=== PATIENT | female | born 1990 | race Caucasian/White ===

== ENCOUNTER 2016-10-30 18:48 | Emergency (ER) | payer OTHER ==
--- NOTE | 2016-10-30 20:26 | DIAGNOSTIC IMAGING REPORT ---
PROCEDURE: XR CHEST 2 VIEW INDICATION: CHEST PAIN TECHNIQUE: PA and lateral views. COMPARISON: None. FINDINGS: Allowing for suboptimal inspiration on the frontal view, lungs are clear. Heart and mediastinum are normal. Thorax is normal. IMPRESSION: 1. Negative chest.
--- NOTE | 2016-10-30 20:29 | ED CLINICAL REPORT ---
Clinical Report - Physicians/Mid Levels [facility] [address] [place] [address] 10/30/2016 18:51 Patient: BRIAN GEORGES Time Seen: 1900; upon arrival, initial patient contact, initial documentation, patient care assumed. Arrived- By private vehicle. Historian- patient. HISTORY OF PRESENT ILLNESS Chief Complaint: CHEST PAIN and DISCOMFORT. This started 3 days ago and is still present. It was abrupt in onset and has been constant. At its maximum, severity described as moderate. When seen in the E.D., severity described as moderate. Modifying factors. Not worsened by anything. Not relieved by anything. It is described as pressure, burning, "pain" and well localized and it is described as located in the central chest area. No radiation. No nausea, vomiting, difficulty breathing or diaphoresis. No additional chest pain. (heart feels like it is beating faster than normal). Similar symptoms previously: None. Recent medical care: The patient was seen recently in a clinic. ( went to [facility], sent here for further eval). REVIEW OF SYSTEMS No fever or cough. All systems otherwise negative, except as recorded above. PAST HISTORY Negative. SOCIAL HISTORY Never smoker. No alcohol use or drug use. No recent travel. Is a local resident. FAMILY HISTORY Negative. ADDITIONAL NOTES The nursing notes have been reviewed with agreement regarding the chief complaint, HPI, ROS, PMH and patient medications and allergies. PHYSICAL EXAM Vital Signs: 10/30/2016 18:56 BP: 142/92. HR: 110. RR: 14. O2 saturation: 100%. Pain level now: 7/10. Have been reviewed as abnormal and appear to be correct. Hypertensive. Tachycardic. Respiratory rate normal. Temperature normal. Oxygen saturation normal. Appearance: Alert. Oriented X3. No acute distress. Eyes: Pupils equal, round and reactive to light. Eyes normal inspection. Neck: Normal inspection. Neck supple. CVS: Heart rate / rhythm abnormal. Tachycardia (ventricular rate = 110). Heart sounds normal. Pulses normal. Respiratory: No respiratory distress. Breath sounds normal. Chest nontender. Back: Normal external inspection. Skin: Skin warm and dry. Normal skin color. No rash. Normal skin turgor. Extremities: Extremities exhibit normal ROM. No lower extremity edema. Neuro: Oriented X 3. No motor deficit. No sensory deficit. LABS, X-RAYS, AND EKG EKG: EKG time: (1904). No acute process. No acute ischemia. Normal EKG. Regular narrow-complex tachycardia (ventricular rate 108). Sinus tachycardia. Normal EKG. The study has been interpreted contemporaneously by me (and dr person). The EKG appears to be a good tracing. Interpretation time: 1904. Chest X-ray: Normal Chest X-Ray. (IMPRESSION: 1. Negative chest. Electronically Final signed by:Moises Frazier MD 10/30/2016 8:23:46 PM). The X-rays were interpreted by the radiologist and contemporaneously by me. PROGRESS AND PROCEDURES Course of Care: 10/30/2016 20:13 BP: 114/91. HR: 98. RR: 14. O2 saturation: 99%. Pain level now: 7/10. Vital Signs: have been reviewed as normal and appear to be correct. Patient counseled in person regarding the patient's stable condition, test results and diagnosis. 20:29. Differential Diagnosis: I considered muscle strain, costochondritis, myositis, pleurisy, myocardial infarction, intermediate coronary syndrome, unstable angina, angina, aortic dissection, mitral valve prolapse, pericarditis, palpitations, pulmonary embolism, pneumonia, gastroesophageal reflux disease, esophagitis and esophageal spasm as a possible cause of chest pain in this patient. This is a partial list of diagnoses considered. Disposition: Discharged home in good and unchanged condition (20:29). Condition: good and stable. CLINICAL IMPRESSION Atypical chest pain .12 lead EKG performed. INSTRUCTIONS Warnings: GENERAL WARNINGS: Return or contact your physician immediately if your condition worsens or changes unexpectedly, if not improving as expected, or if other problems arise. SPECIFICALLY, return if you develop chest, neck, jaw, shoulder, arm, or back pain, difficulty breathing, a fluttering sensation in your chest, lightheadedness, fainting, excessive fatigue, or sudden sweating. Prescription Medications: Naproxen 500 mg tablets: take 1 orally every 12 hours as needed for pain. Dispense twenty (20). No refills. Follow-up: Follow up with your doctor in two days even if well. Call for an appointment. Summary of care provided to patient. Understanding of the discharge instructions verbalized by patient. (Electronically signed by Michelle Parson A.R.N.P. 10/30/2016 22:58)
--- NOTE | 2016-10-30 20:29 | ED NURSING NOTES ---
Clinical Report - Nurses [facility] [address] [address] [place] [address] 10/30/2016 18:51 Patient: BRIAN GEORGES TRIAGE Triage time 1900 PM. Acuity: LEVEL 2. Chief Complaint: CHEST PAIN. Alert. No acute distress. SEPSIS SCREEN: Sepsis Screen. Negative (no infection suspected/documented). SAMMY COMA SCORE: [place] Coma Scale: 15- eyes open spontaneously (4); best verbal response- oriented x 4 (5); best motor response- obeys commands (6). --19:11 Mary Jo Hunter R.N. 18:56 10/30/16. BP: 142/92. HR: 110. RR: 14. O2 saturation: 100%. Pain level now: 02/16. --19:11 Mary Jo Hunter R.N. 18:56 10/30/16. Temp: 97.6 F (oral). --20:40 Mary Jo Hunter R.N. Weight: 82.1 kg stated. Height/Length: 62 inches Per Patient. BMI: 33.1. --18:56 Mary Jo Hunter R.N. Medications None. --19:09 Mary Jo Hunter R.N. Allergies No Known Drug Allergy. --19:09 Mary Jo Hunter R.N. Medication/allergy information source: the patient. --19:11 Mary Jo Hunter R.N. History Arrived by private vehicle. Historian: patient. Primary physician (Dr. Pineda). ( Pt states having CP started approximately 3 days ago, pain is constant "feels like I have a knot and pressure on my chest" denies SOB, nausea, dizziness. Pt does state feels "worst when I take a deep breath". Went to [facility] to get evaluated, was sent over for further evaluation). Onset. (3). No difficulty breathing, sweating episodes, nausea, vomiting or fever. No cough. 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 PAST MEDICAL HX: Immunizations: up-to-date. Last normal menstrual period- now. No contraception. SOCIAL HX: Never smoker. No alcohol use or drug use. No infectious disease exposure. SELF HARM ASSESSMENT: A self harm assessment was performed. The patient answered "no" to the question "Do you have thoughts of harming or killing yourself?" and "Have you recently had thoughts about harming or killing others?". FALL RISK ASSESSMENT: Fall risk assessment completed. No fall risk identified. NUTRITIONAL RISK ASSESSMENT: The nutritional risk assessment revealed no deficiencies. FUNCTIONAL ASSESSMENT: Functional assessment: no impairments noted. LEARNING NEEDS ASSESSMENT: The learning needs assessment revealed no barriers. SKIN INTEGRITY ASSESSMENT: Skin integrity risk assessment completed. No skin integrity risk identified. --19:11 Mary Jo Hunter R.N. PROBLEMS: no known problems. ADDITIONAL SURGERIES: no known surgeries. Interventions ID band on patient. --19:11 Mary Jo Hunter R.N. NURSING PROGRESS NOTES EKG time: (1904). EKG was ordered, performed by a tech and shown to the ED physician. --19:15 Anaya Valle Pulse oximeter and NIBP monitor placed on patient. Reassurance given. The patient is calm and resting quietly. Overall patient status is the same- she states feels the same. HEENT: Denies headache. RESPIRATORY: Denies difficulty breathing. GI / : Denies nausea. SKIN: Skin is warm and dry. Skin color within normal limits. Call light placed in reach. --20:15 Mary Jo Hunter R.N. 20:13 10/30/16. BP: 114/91. HR: 98. RR: 14. O2 saturation: 99%. Pain level now: 02/16. --20:15 Mary Jo Hunter R.N. DISPOSITION / DISCHARGE 20:00 10/30/2016 Site #1 started via IV in the left antecubital space with an 20g angiocath; one attempt. --20:38 Mary Jo Hunter R.N. 20:38 10/30/2016 Site #1 removed upon discharge. Manual pressure and bandaid applied. --20:38 Mary Jo Hunter R.N. Departure time: 0 PM. Condition at departure: unchanged and stable. The goals identified in the patient's plan of care were met. No learning barriers present. Discharge instructions provided and reviewed with the patient. Reviewed medication(s) side effects, precautions, dosing and course information. Prescription(s) given to the patient. Patient verbalized understanding. Written instructions provided in Indonesian. The patient was discharged by the nurse practitioner. She was discharged home and accompanied by spouse. She left the Emergency Department ambulatory and via private vehicle. Family member driving. FALL RISK ASSESSMENT: Fall risk assessment completed. No fall risk identified. --20:40 Mary Jo Hunter R.N. 20:15 10/30/16. BP: 119/85. HR: 82. RR: 14. O2 saturation: 100% on room air. Temp: 97.6 F (oral). Pain level now: 02/16. --20:40 Mary Jo Hunter R.N. Locked/Released at 10/30/2016 20:41 by Mary Jo Hunter R.N.
--- NOTE | 2016-10-30 20:29 | ED ORDER SUMMARY ---
..... Patient: BRIAN GEORGES OrderSheet [facility] VisitID: [id number] [address] [place] [address] 26y, F Registration Date/Time: 10/30/2016 ORDER SHEET Weight: 82.1 kg (stated) Allergies: No Known Drug Allergy GENERAL ORDERS: Chest 2V Urgent (19:08 10/30/2016 HBivens A.R.N.P.) (Ack 19:18 Ross) (20:06 Bea R.N.) EKG - ER Stat (19:09 10/30/2016 HBivens A.R.N.P.) (19:14 Skylar) MEDICATION ORDERS: IV FLUIDS: ORDER SHEET NOTES: [Electronically signed by Mary Jo Hunter R.N. (20:41 10/30/2016)] [Electronically signed by Michelle Parson.R.N.P. (22:58 10/30/2016)] [Electronically locked/signed by Mary Jo Hunter R.N. (20:41 10/30/2016)]
--- NOTE | 2016-10-30 20:29 | ED NURSING NOTES ---
Clinical Report - Nurses [facility] [place] [address] [place] [address] 10/30/2016 18:51 Patient: BRIAN GEORGES TRIAGE Triage time 1900 PM. Acuity: LEVEL 2. Chief Complaint: CHEST PAIN. Alert. No acute distress. SEPSIS SCREEN: Sepsis Screen. Negative (no infection suspected/documented). SAMMY COMA SCORE: [place] Coma Scale: 15- eyes open spontaneously (4); best verbal response- oriented x 4 (5); best motor response- obeys commands (6). --19:11 Mary Jo Hunter R.N. 18:56 10/30/16. BP: 142/92. HR: 110. RR: 14. O2 saturation: 100%. Pain level now: 02/16. --19:11 Mary Jo Hunter R.N. 18:56 10/30/16. Temp: 97.6 F (oral). --20:40 Mary Jo Hunter R.N. Weight: 82.1 kg stated. Height/Length: 62 inches Per Patient. BMI: 33.1. --18:56 Mary Jo Hunter R.N. Medications None. --19:09 Mary Jo Hunter R.N. Allergies No Known Drug Allergy. --19:09 Mary Jo Hunter R.N. Medication/allergy information source: the patient. --19:11 Mary Jo Hunter R.N. History Arrived by private vehicle. Historian: patient. Primary physician (Dr. Pineda). ( Pt states having CP started approximately 3 days ago, pain is constant "feels like I have a knot and pressure on my chest" denies SOB, nausea, dizziness. Pt does state feels "worst when I take a deep breath". Went to [facility] to get evaluated, was sent over for further evaluation). Onset. (3). No difficulty breathing, sweating episodes, nausea, vomiting or fever. No cough. 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 PAST MEDICAL HX: Immunizations: up-to-date. Last normal menstrual period- now. No contraception. SOCIAL HX: Never smoker. No alcohol use or drug use. No infectious disease exposure. SELF HARM ASSESSMENT: A self harm assessment was performed. The patient answered "no" to the question "Do you have thoughts of harming or killing yourself?" and "Have you recently had thoughts about harming or killing others?". FALL RISK ASSESSMENT: Fall risk assessment completed. No fall risk identified. NUTRITIONAL RISK ASSESSMENT: The nutritional risk assessment revealed no deficiencies. FUNCTIONAL ASSESSMENT: Functional assessment: no impairments noted. LEARNING NEEDS ASSESSMENT: The learning needs assessment revealed no barriers. SKIN INTEGRITY ASSESSMENT: Skin integrity risk assessment completed. No skin integrity risk identified. --19:11 Mary Jo Hunter R.N. PROBLEMS: no known problems. ADDITIONAL SURGERIES: no known surgeries. Interventions ID band on patient. --19:11 Mary Jo Hunter R.N. NURSING PROGRESS NOTES EKG time: (1904). EKG was ordered, performed by a tech and shown to the ED physician. --19:15 Anaya Valle Pulse oximeter and NIBP monitor placed on patient. Reassurance given. The patient is calm and resting quietly. Overall patient status is the same- she states feels the same. HEENT: Denies headache. RESPIRATORY: Denies difficulty breathing. GI / : Denies nausea. SKIN: Skin is warm and dry. Skin color within normal limits. Call light placed in reach. --20:15 Mary Jo Hunter R.N. 20:13 10/30/16. BP: 114/91. HR: 98. RR: 14. O2 saturation: 99%. Pain level now: 02/16. --20:15 Mary Jo Hunter R.N. DISPOSITION / DISCHARGE 20:00 10/30/2016 Site #1 started via IV in the left antecubital space with an 20g angiocath; one attempt. --20:38 Mary Jo Hunter R.N. 20:38 10/30/2016 Site #1 removed upon discharge. Manual pressure and bandaid applied. --20:38 Mary Jo Hunter R.N. Departure time: 0 PM. Condition at departure: unchanged and stable. The goals identified in the patient's plan of care were met. No learning barriers present. Discharge instructions provided and reviewed with the patient. Reviewed medication(s) side effects, precautions, dosing and course information. Prescription(s) given to the patient. Patient verbalized understanding. Written instructions provided in Kinyarwanda. The patient was discharged by the nurse practitioner. She was discharged home and accompanied by spouse. She left the Emergency Department ambulatory and via private vehicle. Family member driving. FALL RISK ASSESSMENT: Fall risk assessment completed. No fall risk identified. --20:40 Mary Jo Hunter R.N. 20:15 10/30/16. BP: 119/85. HR: 82. RR: 14. O2 saturation: 100% on room air. Temp: 97.6 F (oral). Pain level now: 02/16. --20:40 Mary Jo Hunter R.N. Locked/Released at 10/30/2016 20:41 by Mary Jo Hunter R.N.
--- NOTE | 2016-10-30 20:29 | ED ORDER SUMMARY ---
..... Patient: BRIAN GEORGES OrderSheet [facility] VisitID: [id number] [address] [place] [address] 26y, F Registration Date/Time: 10/30/2016 ORDER SHEET Weight: 82.1 kg (stated) Allergies: No Known Drug Allergy GENERAL ORDERS: Chest 2V Urgent (19:08 10/30/2016 HBivens A.R.N.P.) (Ack 19:18 Ross) (20:06 Bea R.N.) EKG - ER Stat (19:09 10/30/2016 HBivens A.R.N.P.) (19:14 Skylar) MEDICATION ORDERS: IV FLUIDS: ORDER SHEET NOTES: [Electronically signed by Mary Jo Hunter R.N. (20:41 10/30/2016)] [Electronically signed by Michelle Parson.R.N.P. (22:58 10/30/2016)] [Electronically locked/signed by Mary Jo Hunter R.N. (20:41 10/30/2016)]
--- NOTE | 2016-10-30 20:29 | ED CLINICAL REPORT ---
Clinical Report - Physicians/Mid Levels [facility] [address] [place] [address] 10/30/2016 18:51 Patient: BRIAN GEORGES Time Seen: 1900; upon arrival, initial patient contact, initial documentation, patient care assumed. Arrived- By private vehicle. Historian- patient. HISTORY OF PRESENT ILLNESS Chief Complaint: CHEST PAIN and DISCOMFORT. This started 3 days ago and is still present. It was abrupt in onset and has been constant. At its maximum, severity described as moderate. When seen in the E.D., severity described as moderate. Modifying factors. Not worsened by anything. Not relieved by anything. It is described as pressure, burning, "pain" and well localized and it is described as located in the central chest area. No radiation. No nausea, vomiting, difficulty breathing or diaphoresis. No additional chest pain. (heart feels like it is beating faster than normal). Similar symptoms previously: None. Recent medical care: The patient was seen recently in a clinic. ( went to [facility], sent here for further eval). REVIEW OF SYSTEMS No fever or cough. All systems otherwise negative, except as recorded above. PAST HISTORY Negative. SOCIAL HISTORY Never smoker. No alcohol use or drug use. No recent travel. Is a local resident. FAMILY HISTORY Negative. ADDITIONAL NOTES The nursing notes have been reviewed with agreement regarding the chief complaint, HPI, ROS, PMH and patient medications and allergies. PHYSICAL EXAM Vital Signs: 10/30/2016 18:56 BP: 142/92. HR: 110. RR: 14. O2 saturation: 100%. Pain level now: 7/10. Have been reviewed as abnormal and appear to be correct. Hypertensive. Tachycardic. Respiratory rate normal. Temperature normal. Oxygen saturation normal. Appearance: Alert. Oriented X3. No acute distress. Eyes: Pupils equal, round and reactive to light. Eyes normal inspection. Neck: Normal inspection. Neck supple. CVS: Heart rate / rhythm abnormal. Tachycardia (ventricular rate = 110). Heart sounds normal. Pulses normal. Respiratory: No respiratory distress. Breath sounds normal. Chest nontender. Back: Normal external inspection. Skin: Skin warm and dry. Normal skin color. No rash. Normal skin turgor. Extremities: Extremities exhibit normal ROM. No lower extremity edema. Neuro: Oriented X 3. No motor deficit. No sensory deficit. LABS, X-RAYS, AND EKG EKG: EKG time: (1904). No acute process. No acute ischemia. Normal EKG. Regular narrow-complex tachycardia (ventricular rate 108). Sinus tachycardia. Normal EKG. The study has been interpreted contemporaneously by me (and dr person). The EKG appears to be a good tracing. Interpretation time: 1904. Chest X-ray: Normal Chest X-Ray. (IMPRESSION: 1. Negative chest. Electronically Final signed by:Moises Frazier MD 10/30/2016 8:23:46 PM). The X-rays were interpreted by the radiologist and contemporaneously by me. PROGRESS AND PROCEDURES Course of Care: 10/30/2016 20:13 BP: 114/91. HR: 98. RR: 14. O2 saturation: 99%. Pain level now: 7/10. Vital Signs: have been reviewed as normal and appear to be correct. Patient counseled in person regarding the patient's stable condition, test results and diagnosis. 20:29. Differential Diagnosis: I considered muscle strain, costochondritis, myositis, pleurisy, myocardial infarction, intermediate coronary syndrome, unstable angina, angina, aortic dissection, mitral valve prolapse, pericarditis, palpitations, pulmonary embolism, pneumonia, gastroesophageal reflux disease, esophagitis and esophageal spasm as a possible cause of chest pain in this patient. This is a partial list of diagnoses considered. Disposition: Discharged home in good and unchanged condition (20:29). Condition: good and stable. CLINICAL IMPRESSION Atypical chest pain .12 lead EKG performed. INSTRUCTIONS Warnings: GENERAL WARNINGS: Return or contact your physician immediately if your condition worsens or changes unexpectedly, if not improving as expected, or if other problems arise. SPECIFICALLY, return if you develop chest, neck, jaw, shoulder, arm, or back pain, difficulty breathing, a fluttering sensation in your chest, lightheadedness, fainting, excessive fatigue, or sudden sweating. Prescription Medications: Naproxen 500 mg tablets: take 1 orally every 12 hours as needed for pain. Dispense twenty (20). No refills. Follow-up: Follow up with your doctor in two days even if well. Call for an appointment. Summary of care provided to patient. Understanding of the discharge instructions verbalized by patient. (Electronically signed by Michelle Parson A.R.N.P. 10/30/2016 22:58)
--- NOTE | 2016-10-30 22:58 | ED MAR SUMMARY ---
..... Medication Administration Record [facility] [address] [place], [place] [id number] Patient: BRIAN GEORGES Visit ID: [id number] 26y, F Weight: 82.1 kg Height/Length: 62 in BMI: 33.1 ALLERGIES: No Known Drug Allergy
--- NOTE | 2016-10-30 22:58 | ED DISCHARGE INSTRUCTIONS ---
Patient: BRIAN GEORGES General Instructions [facility] VisitID: [id number] [place] [address] 26y, F Registration Date/Time: 10/30/2016 Atypical chest pain .12 lead EKG performed. INSTRUCTIONS Warnings: GENERAL WARNINGS: Return or contact your physician immediately if your condition worsens or changes unexpectedly, if not improving as expected, or if other problems arise. SPECIFICALLY, return if you develop chest, neck, jaw, shoulder, arm, or back pain, difficulty breathing, a fluttering sensation in your chest, lightheadedness, fainting, excessive fatigue, or sudden sweating. Prescription Medications: Naproxen 500 mg tablets: take 1 orally every 12 hours as needed for pain. Dispense twenty (20). No refills. Follow-up: Follow up with your doctor in two days even if well. Call for an appointment. Summary of care provided to patient. Understanding of the discharge instructions verbalized by patient. ADDITIONAL INFORMATION Chest Pain, Noncardiac Based on your visit today, the exact cause of your chest pain is not certain. Your condition does not seem serious and your pain does not appear to be coming from your heart. However, sometimes the signs of a serious problem take more time to appear. Therefore, please watch for the warning signs listed below. Home Care: Rest today and avoid strenuous activity. Take any prescribed medicine as directed. Follow Up with your doctor or this facility as instructed or if you do not start to feel better within 24 hours. Get Prompt Medical Attention if any of the following occur: A change in the type of pain: if it feels different, becomes more severe, lasts longer, or begins to spread into your shoulder, arm, neck, jaw or back Shortness of breath or increased pain with breathing Cough with dark colored sputum (phlegm) or blood Weakness, dizziness, or fainting Fever of 100.4F (38C) or higher, or as directed by your healthcare provider Swelling, pain or redness in one leg Chest Pain, Uncertain Cause Chest pain can happen for a number of reasons. Sometimes the cause can not be determined. If yourcondition does not seem serious, and your pain does not appear to be coming from your heart, your doctor may recommend watching it closely. Sometimes the signs of a serious problem take more time to appear. Therefore, watch for the warning signs listed below. Home care After your visit, follow these recommendations: Rest today and avoid strenuous activity. Take any prescribed medicine as directed. Follow-up care Follow up with your doctor or this facility as instructed or if you do not start to feel better within 24 hours. Call 911 Get immediate medical attention if any of the following occur: A change in the type of pain: if it feels different, becomes more severe, lasts longer, or begins to spread into your shoulder, arm, neck, jaw or back Shortness of breath or increased pain with breathing Weakness, dizziness, or fainting Rapid heart beat Get prompt medical attention Call your doctor right away if any of the following occur: Cough with dark colored sputum (phlegm) or blood Fever of 100.4F(38C) or higher, or as directed by your health care provider Swelling, pain or redness in one leg Naproxen Sodium Oral tablet What is this medicine? NAPROXEN (na PROX en) is a non-steroidal anti-inflammatory drug (NSAID). It is used to reduce swelling and to treat pain. This medicine may be used for dental pain, headache, or painful monthly periods. It is also used for painful joint and muscular problems such as arthritis, tendinitis, bursitis, and gout. How should I use this medicine? Take this medicine by mouth with a glass of water. Follow the directions on the prescription label. Take it with food if your stomach gets upset. Try to not lie down for at least 10 minutes after you take it. Take your medicine at regular intervals. Do not take your medicine more often than directed. Long-term, continuous use may increase the risk of heart attack or stroke. A special MedGuide will be given to you by the pharmacist with each prescription and refill. Be sure to read this information carefully each time. Talk to your turntable engineer regarding the use of this medicine in children. Special care may be needed. What side effects may I notice from receiving this medicine? Side effects that you should report to your doctor or health care management assistant as soon as possible: black or bloody stools, blood in the urine or vomit blurred vision chest pain difficulty breathing or wheezing nausea or vomiting severe stomach pain skin rash, skin redness, blistering or peeling skin, hives, or itching slurred speech or weakness on one side of the body swelling of eyelids, throat, lips unexplained weight gain or swelling unusually weak or tired yellowing of eyes or skin Side effects that usually do not require medical attention (report to your doctor or health care management assistant if they continue or are bothersome): constipation headache heartburn What may interact with this medicine? alcohol aspirin cidofovir diuretics lithium methotrexate other drugs for inflammation like ketorolac or prednisone pemetrexed probenecid warfarin What if I miss a dose? If you miss a dose, take it as soon as you can. If it is almost time for your next dose, take only that dose. Do not take double or extra doses. Where should I keep my medicine? Keep out of the reach of children. Store at room temperature between 15 and 30 degrees C (59 and 86 degrees F). Keep container tightly closed. Throw away any unused medicine after the expiration date. What should I tell my health care provider before I take this medicine? They need to know if you have any of these conditions: asthma cigarette smoker drink more than 3 alcohol containing drinks a day heart disease or circulation problems such as heart failure or leg edema (fluid retention) high blood pressure kidney disease liver disease stomach bleeding or ulcers an unusual or allergic reaction to naproxen, aspirin, other NSAIDs, other medicines, foods, dyes, or preservatives or trying to get breast-feeding What should I watch for while using this medicine? Tell your doctor or health care management assistant if your pain does not get better. Talk to your doctor before taking another medicine for pain. Do not treat yourself. This medicine does not prevent heart attack or stroke. In fact, this medicine may increase the chance of a heart attack or stroke. The chance may increase with longer use of this medicine and in people who have heart disease. If you take aspirin to prevent heart attack or stroke, talk with your doctor or health care management assistant. Do not take other medicines that contain aspirin, ibuprofen, or naproxen with this medicine. Side effects such as stomach upset, nausea, or ulcers may be more likely to occur. Many medicines available without a prescription should not be taken with this medicine. This medicine can cause ulcers and bleeding in the stomach and intestines at any time during treatment. Do not smoke cigarettes or drink alcohol. These increase irritation to your stomach and can make it more susceptible to damage from this medicine. Ulcers and bleeding can happen without warning symptoms and can cause . You may get drowsy or dizzy. Do not drive, use machinery, or do anything that needs mental alertness until you know how this medicine affects you. Do not stand or sit up quickly, especially if you are an older patient. This reduces the risk of dizzy or fainting spells. This medicine can cause you to bleed more easily. Try to avoid damage to your teeth and gums when you brush or floss your teeth. You have been given the following additional information: Chest Pain, Noncardiac Chest Pain, Uncertain Cause Naproxen Sodium Oral tablet (Electronically signed by Michelle Parson A.R.N.P. 10/30/2016 22:58)
--- NOTE | 2016-10-30 22:58 | ED MED RECONCILIATION SUMMARY ---
Patient: BRIAN GEORGES Medication Reconciliation Report [facility] VisitID: [id number] [address] [place] [address] 26y, F Registration Date/Time: 10/30/2016 Weight: 82.1 kg Height/Length: 62 in. BMI: 33.1 ALLERGIES: No Known Drug Allergy The patient's Home Medications are listed below: NONE. The source(s) of the original Home Medication information: patient The following Medications were given to the patient in the Emergency Department: None. The following Medications were prescribed to the patient: Naproxen 500 mg tablets: take 1 orally every 12 hours as needed for pain. Dispense twenty (20). No refills. -- Michelle Parson A.R.N.P.
--- NOTE | 2016-10-30 22:58 | ED DISCHARGE INSTRUCTIONS ---
Patient: BRIAN GEORGES General Instructions [facility] VisitID: [id number] [place] [address] 26y, F Registration Date/Time: 10/30/2016 Atypical chest pain .12 lead EKG performed. INSTRUCTIONS Warnings: GENERAL WARNINGS: Return or contact your physician immediately if your condition worsens or changes unexpectedly, if not improving as expected, or if other problems arise. SPECIFICALLY, return if you develop chest, neck, jaw, shoulder, arm, or back pain, difficulty breathing, a fluttering sensation in your chest, lightheadedness, fainting, excessive fatigue, or sudden sweating. Prescription Medications: Naproxen 500 mg tablets: take 1 orally every 12 hours as needed for pain. Dispense twenty (20). No refills. Follow-up: Follow up with your doctor in two days even if well. Call for an appointment. Summary of care provided to patient. Understanding of the discharge instructions verbalized by patient. ADDITIONAL INFORMATION Chest Pain, Noncardiac Based on your visit today, the exact cause of your chest pain is not certain. Your condition does not seem serious and your pain does not appear to be coming from your heart. However, sometimes the signs of a serious problem take more time to appear. Therefore, please watch for the warning signs listed below. Home Care: Rest today and avoid strenuous activity. Take any prescribed medicine as directed. Follow Up with your doctor or this facility as instructed or if you do not start to feel better within 24 hours. Get Prompt Medical Attention if any of the following occur: A change in the type of pain: if it feels different, becomes more severe, lasts longer, or begins to spread into your shoulder, arm, neck, jaw or back Shortness of breath or increased pain with breathing Cough with dark colored sputum (phlegm) or blood Weakness, dizziness, or fainting Fever of 100.4F (38C) or higher, or as directed by your healthcare provider Swelling, pain or redness in one leg Chest Pain, Uncertain Cause Chest pain can happen for a number of reasons. Sometimes the cause can not be determined. If yourcondition does not seem serious, and your pain does not appear to be coming from your heart, your doctor may recommend watching it closely. Sometimes the signs of a serious problem take more time to appear. Therefore, watch for the warning signs listed below. Home care After your visit, follow these recommendations: Rest today and avoid strenuous activity. Take any prescribed medicine as directed. Follow-up care Follow up with your doctor or this facility as instructed or if you do not start to feel better within 24 hours. Call 911 Get immediate medical attention if any of the following occur: A change in the type of pain: if it feels different, becomes more severe, lasts longer, or begins to spread into your shoulder, arm, neck, jaw or back Shortness of breath or increased pain with breathing Weakness, dizziness, or fainting Rapid heart beat Get prompt medical attention Call your doctor right away if any of the following occur: Cough with dark colored sputum (phlegm) or blood Fever of 100.4F(38C) or higher, or as directed by your health care provider Swelling, pain or redness in one leg Naproxen Sodium Oral tablet What is this medicine? NAPROXEN (na PROX en) is a non-steroidal anti-inflammatory drug (NSAID). It is used to reduce swelling and to treat pain. This medicine may be used for dental pain, headache, or painful monthly periods. It is also used for painful joint and muscular problems such as arthritis, tendinitis, bursitis, and gout. How should I use this medicine? Take this medicine by mouth with a glass of water. Follow the directions on the prescription label. Take it with food if your stomach gets upset. Try to not lie down for at least 10 minutes after you take it. Take your medicine at regular intervals. Do not take your medicine more often than directed. Long-term, continuous use may increase the risk of heart attack or stroke. A special MedGuide will be given to you by the pharmacist with each prescription and refill. Be sure to read this information carefully each time. Talk to your commercial drone pilot regarding the use of this medicine in children. Special care may be needed. What side effects may I notice from receiving this medicine? Side effects that you should report to your doctor or health wound care technician as soon as possible: black or bloody stools, blood in the urine or vomit blurred vision chest pain difficulty breathing or wheezing nausea or vomiting severe stomach pain skin rash, skin redness, blistering or peeling skin, hives, or itching slurred speech or weakness on one side of the body swelling of eyelids, throat, lips unexplained weight gain or swelling unusually weak or tired yellowing of eyes or skin Side effects that usually do not require medical attention (report to your doctor or health wound care technician if they continue or are bothersome): constipation headache heartburn What may interact with this medicine? alcohol aspirin cidofovir diuretics lithium methotrexate other drugs for inflammation like ketorolac or prednisone pemetrexed probenecid warfarin What if I miss a dose? If you miss a dose, take it as soon as you can. If it is almost time for your next dose, take only that dose. Do not take double or extra doses. Where should I keep my medicine? Keep out of the reach of children. Store at room temperature between 15 and 30 degrees C (59 and 86 degrees F). Keep container tightly closed. Throw away any unused medicine after the expiration date. What should I tell my health care provider before I take this medicine? They need to know if you have any of these conditions: asthma cigarette smoker drink more than 3 alcohol containing drinks a day heart disease or circulation problems such as heart failure or leg edema (fluid retention) high blood pressure kidney disease liver disease stomach bleeding or ulcers an unusual or allergic reaction to naproxen, aspirin, other NSAIDs, other medicines, foods, dyes, or preservatives or trying to get breast-feeding What should I watch for while using this medicine? Tell your doctor or health wound care technician if your pain does not get better. Talk to your doctor before taking another medicine for pain. Do not treat yourself. This medicine does not prevent heart attack or stroke. In fact, this medicine may increase the chance of a heart attack or stroke. The chance may increase with longer use of this medicine and in people who have heart disease. If you take aspirin to prevent heart attack or stroke, talk with your doctor or health wound care technician. Do not take other medicines that contain aspirin, ibuprofen, or naproxen with this medicine. Side effects such as stomach upset, nausea, or ulcers may be more likely to occur. Many medicines available without a prescription should not be taken with this medicine. This medicine can cause ulcers and bleeding in the stomach and intestines at any time during treatment. Do not smoke cigarettes or drink alcohol. These increase irritation to your stomach and can make it more susceptible to damage from this medicine. Ulcers and bleeding can happen without warning symptoms and can cause . You may get drowsy or dizzy. Do not drive, use machinery, or do anything that needs mental alertness until you know how this medicine affects you. Do not stand or sit up quickly, especially if you are an older patient. This reduces the risk of dizzy or fainting spells. This medicine can cause you to bleed more easily. Try to avoid damage to your teeth and gums when you brush or floss your teeth. You have been given the following additional information: Chest Pain, Noncardiac Chest Pain, Uncertain Cause Naproxen Sodium Oral tablet (Electronically signed by Michelle Parson A.R.N.P. 10/30/2016 22:58)
--- NOTE | 2016-10-30 22:58 | ED MAR SUMMARY ---
..... Medication Administration Record [facility] [address] [place], [place] [id number] Patient: BRIAN GEORGES Visit ID: [id number] 26y, F Weight: 82.1 kg Height/Length: 62 in BMI: 33.1 ALLERGIES: No Known Drug Allergy
--- NOTE | 2016-10-30 22:58 | ED MED RECONCILIATION SUMMARY ---
Patient: BRIAN GEORGES Medication Reconciliation Report [facility] VisitID: [id number] [address] [place] [address] 26y, F Registration Date/Time: 10/30/2016 Weight: 82.1 kg Height/Length: 62 in. BMI: 33.1 ALLERGIES: No Known Drug Allergy The patient's Home Medications are listed below: NONE. The source(s) of the original Home Medication information: patient The following Medications were given to the patient in the Emergency Department: None. The following Medications were prescribed to the patient: Naproxen 500 mg tablets: take 1 orally every 12 hours as needed for pain. Dispense twenty (20). No refills. -- Michelle Parson A.R.N.P.
== END 2016-10-30 20:31 | disposition home or self-care (01) ==
LOC: ED SRH 18:48
DX: R07.89 Other chest pain (principal)